=== PATIENT | female | born 1955 | race Caucasian/White ===

== ENCOUNTER 2020-08-25 13:15 | Inpatient (IN) | payer MEDICARE, SELFPAY ==
[2020-08-25 13:50] VITALS: BP 160/87; PULSE 98; RESP 16; TEMP 36.3; O2SAT 97; BMI 32.8
--- NOTE | 2020-08-25 14:42 | ED_ITS ---
HPI - Psych General Chief Complaint: Psychiatric Symptoms Stated Complaint: CRISIS Time Seen by Provider: 08/25/20 14:41 Source: patient Mode of arrival: ambulatory Limitations: no limitations History of Present Illness HPI Narrative: 65-year-old female with history of depression presenting with complaint of increasing feeling of depression and suicidal ideation with no specific plan also positive ETOH admits to drinking today. Reported to RN symptoms triggered by recent presidential election outcomes which she is unhappy with. Denies any medical complaints. No recent fall or injury. MD complaint: feels depressed Onset (ago): day(s) Duration: constant History of same: Yes Relieving factors: none Exacerbating factors: none If self harm: admits thoughts of self harm Details of plan: no plan expressed Related Data Home Medications Medication Instructions Recorded Confirmed albuterol sulfate 3 ml INHALATION Q4H PRN 08/25/20 08/25/20 albuterol sulfate [Ventolin HFA] 2 puff INHALATION Q6H PRN 08/25/20 08/25/20 bupropion HCl 1 tab PO QAM 08/25/20 08/25/20 escitalopram oxalate 1 tab PO BEDTIME 08/25/20 08/25/20 levothyroxine 1 tab PO DAILY 08/25/20 08/25/20 lisinopril 1 tab PO DAILY 08/25/20 08/25/20 sertraline 2 tab PO BEDTIME 08/25/20 08/25/20 simvastatin 1 tab PO BEDTIME 08/25/20 08/25/20 trazodone 2 tab PO BEDTIME PRN 08/25/20 08/25/20 Allergies Allergy/AdvReac Type Severity Reaction Status Date / Time No Known Allergies Allergy Unverified 07/03/20 19:45 [No Known Allergies*] Review of Systems Review of Systems: Constitutional: No Weight loss, No Fever, No Chills, No Night Sweats, No Fatigue, No Malaise ENT/Mouth: No Hearing loss, No Ear Pain, No Nasal Congestion, No Sinus Pain, No Hoarseness, No sore throat, No Rhinorrhea, No Swallowing Difficulty Eyes: No Eye Pain, No Swelling, No Redness, No Foreign Body, No Discharge, No Vision Changes Cardiovascular: No Chest Pain, No SOB, No Dyspnea on Exertion, No Orthopnea, No Edema, No Palpitations Respiratory: No Cough, No Sputum, No Wheezing, No Smoke Exposure, No Dyspnea Gastrointestinal: No Nausea, No Vomiting, No Diarrhea, No Constipation, No abdominal Pain, No Hematochezia, No Melena Genitourinary: no irregular bleeding, No Dysuria, No Urinary Frequency, No Hematuria, No Urinary Incontinence, No Urgency, No Flank Pain, No Urinary Flow Changes, No Hesitancy Musculoskeletal: No joint pain, No Myalgias, No Joint Swelling Skin: No Skin Lesions, No rash Neuro: No Weakness, No Numbness, No Paresthesias, No Loss of Consciousness, No Dizziness, No Headache Psych: as noted in HPI Heme/Lymph: No Bruising, No Bleeding,No Lymphadenopathy Endocrine: No Polyuria, No Polydipsia, No Temperature Intolerance Yes all other systems are reviewed and are negative [facility] Past Medical History Attestation statement: The following information was validated with the patient. Social History Social History Alcohol intake: current Alcohol intake frequency: 3 or more drinks per day Alcohol type: beer Smoking Status: Current every day smoker Smoked in Last 30 Days: Yes Use of substances other than those prescribed or required for medical reasons: No Advance Directives: No Advance Directives Information Provided: No Physical Exam Vital Signs: Vital Signs: Last Vital Signs Temp 98.5 F 08/25/20 20:49 Pulse 113 H 08/25/20 20:49 Resp 18 08/25/20 20:49 BP 163/95 H 08/25/20 20:49 Pulse Ox 96 08/25/20 20:49 Body Mass Index 32.8 Reviewed Const: Other: + odor of ETOH General: cooperative and healthy appearing; No acute distress or intoxicated appearing Nutritional Appearance: average body habitus Orientation/consciousness: patient oriented x3 HENMT: Head: Yes normal to inspection Ears: hearing grossly normal bilaterally Eyes: General: appearance normal, both eyes and all related structures Visual Foster: normal visual foster by confrontation Neck: Neck: No positive Brudzinski's sign and No tender Thyroid: Thyroid normal Chest: Chest palpation & inspection: normal inspection of the chest Resp: Effort & Inspection: normal respiratory effort Cardio: Jugular venous distension: no JVD GI: Inspection: Yes normal to inspection Percussion: Yes normal to percussion Auscultation: normal bowel sounds : General: Yes no CVA tenderness Back/Spine/Pelvis: Back: no CVA tenderness Skin: General skin exam: no rashes or lesions noted Neuro: General: patient oriented x3 Extrem: General: Yes normal to inspection Course Course Course Narrative: Evaluate Medicare team recommended for inpatient level care. Bed secured on M5. Requesting rapid COVID test this was ordered. Patient has no medical complaints. Has been resting comfortably. MDM - Psych MDM Narrative Medical decision making narrative: 1425 Offers no medical complaints. Will check ETOH/medical screening labs and obtain crisis evaluation. Differential Diagnosis Differential diagnosis: Likely acute psychosis, suicidal ideation, depression, drug-induced psychotic disorder, acute anxiety, substance abuse and alcohol intoxication Restraints Face to Face Assessment: Face to Face Assessment: Current Situation: After assessment of the patient, a review of the pertinent medical record and a discussion with nursing staff, I feel the patient requires a restrain intervention. Reaction To: [] Medical Condition: [] Behavioral State: [] Continued Need: [] Medical Records Attestation: I reviewed the patient's medical records. Lab Data Attestation: I reviewed the patient's lab results. Result diagrams: 08/25/20 16:09 08/25/20 16:09 Labs: Lab Results 08/25/20 08/25/20 08/25/20 Range/Units 16:09 16:09 16:09 WBC 6.0 (4.8-10.8) X10*3/uL RBC 3.84 L (4.20-5.50) X10*6/uL Hgb 12.3 (12.0-16.0) g/dl Hct 37.9 (37-47) % MCV 98.7 H (80-98) fL MCH 32.0 (27.0-33.0) pg MCHC 32.5 (31.0-35.0) g/dl RDW 15.6 (11.0-16.0) % Plt Count 350 (160-400) X10*3/uL MPV 9.1 L (9.4-12.3) fL Immature Gran % (Auto) 0.2 (0.0-0.4) % Neut % (Auto) 69.3 (45-73) % Lymph % (Auto) 22.0 (20-40) % [place] % (Auto) 7.3 (2-11) % Eos % (Auto) 0.5 (0-4) % Baso % (Auto) 0.7 (0-2) % Lymph # (Auto) 1.3 (1.2-4.9) X10*3/uL [place] # (Auto) 0.4 (0.1-1.2) X10*3/uL Eos # (Auto) 0.0 (0.0-0.4) X10*3/uL Baso # (Auto) 0.0 (0.0-0.2) X10*3/uL Abs Immat Gran (auto) 0.01 (0.00-0.03) X10*3/uL Absolute Neuts (auto) 4.2 (2.0-8.3) X10*3/uL Absolute Nucleated RBC 0.000 (0.0-0.012) X10*3/uL Nucleated RBC % (auto) 0.0 (0.0-0.2) /100WBC Sodium 147 H (135-145) mmol/L Potassium 3.7 (3.3-5.1) mmol/l Chloride 106 (96-108) mmol/L Carbon Dioxide 27 (22-29) mmol/L Anion Gap 18 (12-20) BUN 10 (9-16) mg/dL Creatinine 0.83 (0.5-1.4) mg/dL Estim Creat Clear Calc 70.0 Estimated GFR > 60 Random Glucose 98 (60-115) mg/dL Calcium 8.2 L (8.4-10.2) mg/dL Total Bilirubin 0.4 (0.0-1.0) mg/dL AST 28 (5-31) U/L ALT 18 (0-31) U/L Alkaline Phosphatase 109 (39-117) U/L Total Protein 6.8 (6.5-8.0) g/dL Albumin 4.0 (3.5-5.0) g/dL Urine Color Urine Appearance Urine pH (5.0-8.0) Ur Specific [place] (1.005-1.025) Urine Protein (NEG-TRACE) MG/DL Urine Glucose (UA) (NEG) MG/DL Urine Ketones (NEG) MG/DL Urine Blood (NEG) Urine Nitrite (NEG) Ur Leukocyte Esterase (NEG) Urine RBC (0) /HPF Urine WBC (0-4) /HPF Ur Squamous Epith Cells /LPF Urine Bacteria /LPF Urine Mucus /LPF Urine Opiates Screen (Not Detect) Ur Barbiturates Screen (Not Detect) Ur Phencyclidine Scrn (Not Detect) Ur Amphetamines Screen (Not Detect) U Benzodiazepines Scrn (Not Detect) Urine Cocaine Screen (Not Detect) U Marijuana (THC) Screen (Not Detect) Ethyl Alcohol 187 mg/dL 08/25/20 08/25/20 Range/Units 16:18 16:18 WBC (4.8-10.8) X10*3/uL RBC (4.20-5.50) X10*6/uL Hgb (12.0-16.0) g/dl Hct (37-47) % MCV (80-98) fL MCH (27.0-33.0) pg MCHC (31.0-35.0) g/dl RDW (11.0-16.0) % Plt Count (160-400) X10*3/uL MPV (9.4-12.3) fL Immature Gran % (Auto) (0.0-0.4) % Neut % (Auto) (45-73) % Lymph % (Auto) (20-40) % [place] % (Auto) (2-11) % Eos % (Auto) (0-4) % Baso % (Auto) (0-2) % Lymph # (Auto) (1.2-4.9) X10*3/uL [place] # (Auto) (0.1-1.2) X10*3/uL Eos # (Auto) (0.0-0.4) X10*3/uL Baso # (Auto) (0.0-0.2) X10*3/uL Abs Immat Gran (auto) (0.00-0.03) X10*3/uL Absolute Neuts (auto) (2.0-8.3) X10*3/uL Absolute Nucleated RBC (0.0-0.012) X10*3/uL Nucleated RBC % (auto) (0.0-0.2) /100WBC Sodium (135-145) mmol/L Potassium (3.3-5.1) mmol/l Chloride (96-108) mmol/L Carbon Dioxide (22-29) mmol/L Anion Gap (12-20) BUN (9-16) mg/dL Creatinine (0.5-1.4) mg/dL Estim Creat Clear Calc Estimated GFR Random Glucose (60-115) mg/dL Calcium (8.4-10.2) mg/dL Total Bilirubin (0.0-1.0) mg/dL AST (5-31) U/L ALT (0-31) U/L Alkaline Phosphatase (39-117) U/L Total Protein (6.5-8.0) g/dL Albumin (3.5-5.0) g/dL Urine Color YELLOW Urine Appearance CLEAR Urine pH 6.0 (5.0-8.0) Ur Specific [place] 1.025 (1.005-1.025) Urine Protein NEG (NEG-TRACE) MG/DL Urine Glucose (UA) NEG (NEG) MG/DL Urine Ketones NEG (NEG) MG/DL Urine Blood TRACE (NEG) Urine Nitrite NEG (NEG) Ur Leukocyte Esterase NEG (NEG) Urine RBC 0-2 (0) /HPF Urine WBC 0-2 (0-4) /HPF Ur Squamous Epith Cells 4+ /LPF Urine Bacteria 1+ /LPF Urine Mucus 1+ /LPF Urine Opiates Screen Not Detected (Not Detect) Ur Barbiturates Screen Not Detected (Not Detect) Ur Phencyclidine Scrn Not Detected (Not Detect) Ur Amphetamines Screen Not Detected (Not Detect) U Benzodiazepines Scrn Not Detected (Not Detect) Urine Cocaine Screen Not Detected (Not Detect) U Marijuana (THC) Screen Not Detected (Not Detect) Ethyl Alcohol mg/dL Discharge Plan Discharge Clinical Impression: Depression, Alcohol abuse Patient Disposition: Admitted As Inpatient Prescriptions: No Action lisinopril 20 mg tablet 1 tab PO DAILY RF: 0 albuterol sulfate 2.5 mg /3 mL (0.083 %) solution for nebulization 3 ml inhalation Q4H PRN (Reason: Wheezing) RF: 0 sertraline 100 mg tablet 2 tab PO BEDTIME RF: 0 trazodone 100 mg tablet 2 tab PO BEDTIME PRN (Reason: Insomnia) RF: 0 levothyroxine 50 mcg tablet 1 tab PO DAILY RF: 0 simvastatin 20 mg tablet 1 tab PO BEDTIME RF: 0 albuterol sulfate [Ventolin HFA] 90 mcg/actuation HFA aerosol inhaler 2 puff inhalation Q6H PRN (Reason: wheezing) RF: 0 escitalopram oxalate 20 mg tablet 1 tab PO BEDTIME RF: 0 bupropion HCl 300 mg tablet extended release 24 hr 1 tab PO QAM RF: 0
[2020-08-25 15:51] VITALS: BP 159/74; PULSE 81; RESP 18; TEMP 37.2; O2SAT 94
[2020-08-25 16:17] LABS: MANUAL DIFF FLAG NO
[2020-08-25 16:20] LABS: Basophils Percent Auto 0.7 % (0-2); Eosinophils Percent Auto 0.5 % (0-4); Hematocrit 37.9 % (37-47); Hemoglobin 12.3 g/dl (12.0-16.0); Imm Gran Abs Auto 0.01 X10*3/uL (0.00-0.03); Imm Gran Pct Auto 0.2 % (0.0-0.4); Lymphocytes Absolute Auto 1.3 X10*3/uL (1.2-4.9); Mean Corpuscular HGB Conc 32.5 g/dl (31.0-35.0); Mean Corpuscular Volume 98.7 fL (80-98); Mean Platelet Volume 9.1 fL (9.4-12.3); Monocytes Absolute Auto 0.4 X10*3/uL (0.1-1.2); Monocytes Percent Auto 7.3 % (2-11); Neutrophils Absolute Auto 4.2 X10*3/uL (2.0-8.3); Neutrophils Percent Auto 69.3 % (45-73); Platelet Count 350 X10*3/uL (160-400); Red Blood Count 3.84 X10*6/uL (4.20-5.50); Red Cell Distribution Width 15.6 % (11.0-16.0)
[2020-08-25 16:31] LABS: Glucose Urine UA NEG (NEG); Leukocyte Esterase Urine NEG (NEG); Nitrite Urine NEG (NEG); Specific Gravity - Urine 1.025 (1.005-1.025); Urine Blood TRACE (NEG); Urine Ketones NEG (NEG); Urine Protein NEG (NEG-TRACE)
[2020-08-25 16:33] LABS: Appearance Urine CLEAR; Color Urine YELLOW
[2020-08-25 16:39] LABS: Bacteria Urine 1+ /LPF; Mucus Urine 1+ /LPF; RBC Urine 0-2 /HPF (0); Squamous Epithelial Cell Urine 4+ /LPF; WBC Urine 0-2 /HPF (0-4)
[2020-08-25 16:39] LABS: Ethanol 187 mg/dL
[2020-08-25 16:42] LABS: Alanine Aminotransferase 18 U/L (0-31); Alkaline Phosphatase 109 U/L (39-117); Anion Gap 18 (12-20); Aspartate Amino Transferase 28 U/L (5-31); Bilirubin Total 0.4 mg/dL (0.0-1.0); Blood Urea Nitrogen 10 mg/dL (9-16); Calcium 8.2 mg/dL (8.4-10.2); Carbon Dioxide 27 mmol/L (22-29); Chloride 106 mmol/L (96-108); Estimated Glomerular Filt Rate > 60; Glucose Random 98 mg/dL (60-115); Potassium 3.7 mmol/l (3.3-5.1); Sodium 147 mmol/L (135-145); Total Protein 6.8 g/dL (6.5-8.0)
[2020-08-25 16:52] LABS: Amphetamine Screen Urine Not Detected (Not Detect); Barbiturates, Urine Not Detected (Not Detect); Benzodiazepines Screen Urine Not Detected (Not Detect); Cannabinoid Screen Urine Not Detected (Not Detect); Cocaine Screen Urine Not Detected (Not Detect); Opiate Screen Urine Not Detected (Not Detect); Phencyclidine Screen Urine Not Detected (Not Detect)
[2020-08-25 18:31] VITALS: BP 171/103; PULSE 109; RESP 17; TEMP 36.8; O2SAT 98
[2020-08-25] MEDS: LORazepam 1 MG TABLET 2 MG PO (19:17)
[2020-08-25 20:49] VITALS: BP 163/95; PULSE 113; RESP 18; TEMP 36.9; O2SAT 96
[2020-08-25] MEDS: Magnesium Hydrox/Alum Hydrox 30 ML ORAL.SUSP PO (20:53)
[2020-08-25 22:28] LABS: SARS COV2 PCR INHOUSE NEGATIVE (Negative)
[2020-08-25 23:30] VITALS: BP 164/78; PULSE 104; TEMP 36.6
[2020-08-26] MEDS: hydrOXYzine HCL 25 MG TABLET PO (00:30)
[2020-08-26] MEDS: LORazepam 0.5 MG TABLET 1 MG PO ×3 (00:30→10:09)
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
[2020-08-26 05:50] VITALS: BP 184/83; PULSE 80; RESP 16; TEMP 36; O2SAT 96
[2020-08-26 06:30] VITALS: BP 184/83; PULSE 80; RESP 16; TEMP 36; O2SAT 96
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
[2020-08-26 07:01] VITALS: BP 184/83; PULSE 80
[2020-08-26] MEDS: Levothyroxine Sodium 50 MCG TABLET PO (07:01)
[2020-08-26] MEDS: lisinopriL 20 MG TABLET PO (07:01)
[2020-08-26] MEDS: buPROPion HCl XL 300 MG TAB.ER.24H PO (09:56)
[2020-08-26 10:00] VITALS: BP 125/56; PULSE 93; TEMP 37.6
[2020-08-26] MEDS: Acetaminophen 325 MG TABLET 650 MG PO (10:03)
[2020-08-26] MEDS: Albuterol Sulfate 90 MCG 8 GM INHALER 2 PUFF INHALE (10:17)
[2020-08-26] MEDS: Fluticasone/Vilanterol 200/25 BLST.W.DEV 1 PUFF INHALE (10:20)
[2020-08-26 12:00] VITALS: BP 125/56; PULSE 93; TEMP 37.6
[2020-08-26] MEDS: Magnesium Hydrox/Alum Hydrox 30 ML ORAL.SUSP PO ×2 (14:02→21:30)
[2020-08-26] MEDS: Flu Vacc QS2020-21(6mos up)/PF 0.5 ML SYRINGE IM (14:07)
[2020-08-26] MEDS: Gabapentin 100 MG CAPSULE PO ×2 (14:44→20:30)
[2020-08-26] MEDS: Folic Acid 1 MG TABLET PO (14:44)
[2020-08-26] MEDS: Multivitamin TABLET 1 TAB PO (14:44)
[2020-08-26] MEDS: LORazepam 1 MG TABLET PO ×2 (14:46→20:30)
[2020-08-26] MEDS: Nicotine 21 MG PATCH.TD24 TRANSDERMA (15:12)
[2020-08-26 20:00] VITALS: BP 123/68; PULSE 99; TEMP 36.6
[2020-08-26] MEDS: Atorvastatin Calcium 10 MG TABLET PO (20:30)
[2020-08-27] MEDS: Albuterol Sulfate 90 MCG 8 GM INHALER 2 PUFF INHALE ×2 (03:48→14:29)
[2020-08-27 03:50] VITALS: BP 118/66; PULSE 89; RESP 18; TEMP 36.4
[2020-08-27] MEDS: hydrOXYzine HCL 25 MG TABLET PO ×2 (03:52→22:27)
[2020-08-27] MEDS: LORazepam 0.5 MG TABLET 1 MG PO ×2 (03:52→11:31)
--- NOTE | 2020-08-27 04:32 | P.PNPSI_ITS ---
Subjective Subjective Date of Service: 08/27/20 Reason For Visit: Depression Subjective Notes: Conditional Voluntary Interim History: Continued with WD Sx. Some DT confusion noted. Less tremulous but appears flushed. Depressed but safe. Increase Lorazepam and Gabapentin. VS elevated Medication Compliance: Yes Side effects from medications: No Attending Groups: No Review of Systems Reports Neuro-related abnormal movements and Reports tremor(s) Psychiatric: Reports no additional psychiatric complaints and Reports anxiety Mental Status Exam Mental Status Exam Patient Appearance: Disheveled, Perspiring and Unkempt Patient Orientation: Person, Place, Time and Situation Level of Consciousness: Restless Patient Behavior: Guarded, Passive, Anxious and Poor Eye Contact Mood Description: Apathetic, Depressed and Angry Affect Description: Depressed and Anxious Patient Cognition Impaired: No Ability to Follow Directions: Excellent Speech Pattern: Impoverished and Whisper Memory Description: Intact Diagnostics Vital Signs (24Hr): Vital Signs - 24 hr 08/26/20 05:50 08/26/20 06:30 08/26/20 07:01 Temperature 96.8 F 96.8 F Pulse Rate 80 80 80 Respiratory Rate 16 16 Blood Pressure 184/83 H 184/83 H 184/83 H Pulse Oximetry 96 96 08/26/20 10:00 08/26/20 12:00 08/26/20 20:00 Temperature 99.6 F 99.6 F 98 F Pulse Rate 93 93 99 Respiratory Rate Blood Pressure 125/56 L 125/56 L 123/68 Pulse Oximetry Body Mass Index 32.8 Labs Results: 08/25/20 16:09 08/25/20 16:09 Labs: Laboratory Results - last 48 hr 08/25/20 08/25/20 08/25/20 16:09 16:09 16:09 WBC 6.0 RBC 3.84 L Hgb 12.3 Hct 37.9 MCV 98.7 H MCH 32.0 MCHC 32.5 RDW 15.6 Plt Count 350 MPV 9.1 L Immature Gran % (Auto) 0.2 Neut % (Auto) 69.3 Lymph % (Auto) 22.0 Whitley % (Auto) 7.3 Eos % (Auto) 0.5 Baso % (Auto) 0.7 Lymph # (Auto) 1.3 Whitley # (Auto) 0.4 Eos # (Auto) 0.0 Baso # (Auto) 0.0 Abs Immat Gran (auto) 0.01 Absolute Neuts (auto) 4.2 Absolute Nucleated RBC 0.000 Nucleated RBC % (auto) 0.0 Sodium 147 H Potassium 3.7 Chloride 106 Carbon Dioxide 27 Anion Gap 18 BUN 10 Creatinine 0.83 Estim Creat Clear Calc 70.0 Estimated GFR > 60 Random Glucose 98 Calcium 8.2 L Total Bilirubin 0.4 AST 28 ALT 18 Alkaline Phosphatase 109 Total Protein 6.8 Albumin 4.0 Urine Color Urine Appearance Urine pH Ur Specific Aurelia Urine Protein Urine Glucose (UA) Urine Ketones Urine Blood Urine Nitrite Ur Leukocyte Esterase Urine RBC Urine WBC Ur Squamous Epith Cells Urine Bacteria Urine Mucus Urine Opiates Screen Ur Barbiturates Screen Ur Phencyclidine Scrn Ur Amphetamines Screen U Benzodiazepines Scrn Urine Cocaine Screen U Marijuana (THC) Screen Ethyl Alcohol 187 Coronavirus (PCR) COVID-19 (BALAJI) COVID-19 Clin Com 08/25/20 08/25/20 08/25/20 16:18 16:18 21:30 WBC RBC Hgb Hct MCV MCH MCHC RDW Plt Count MPV Immature Gran % (Auto) Neut % (Auto) Lymph % (Auto) Whitley % (Auto) Eos % (Auto) Baso % (Auto) Lymph # (Auto) Whitley # (Auto) Eos # (Auto) Baso # (Auto) Abs Immat Gran (auto) Absolute Neuts (auto) Absolute Nucleated RBC Nucleated RBC % (auto) Sodium Potassium Chloride Carbon Dioxide Anion Gap BUN Creatinine Estim Creat Clear Calc Estimated GFR Random Glucose Calcium Total Bilirubin AST ALT Alkaline Phosphatase Total Protein Albumin Urine Color YELLOW Urine Appearance CLEAR Urine pH 6.0 Ur Specific Aurelia 1.025 Urine Protein NEG Urine Glucose (UA) NEG Urine Ketones NEG Urine Blood TRACE Urine Nitrite NEG Ur Leukocyte Esterase NEG Urine RBC 0-2 Urine WBC 0-2 Ur Squamous Epith Cells 4+ Urine Bacteria 1+ Urine Mucus 1+ Urine Opiates Screen Not Detected Ur Barbiturates Screen Not Detected Ur Phencyclidine Scrn Not Detected Ur Amphetamines Screen Not Detected U Benzodiazepines Scrn Not Detected Urine Cocaine Screen Not Detected U Marijuana (THC) Screen Not Detected Ethyl Alcohol Coronavirus (PCR) COVID-19 (BALAJI) Cancelled COVID-19 Clin Com Cancelled 08/25/20 21:30 WBC RBC Hgb Hct MCV MCH MCHC RDW Plt Count MPV Immature Gran % (Auto) Neut % (Auto) Lymph % (Auto) Whitley % (Auto) Eos % (Auto) Baso % (Auto) Lymph # (Auto) Whitley # (Auto) Eos # (Auto) Baso # (Auto) Abs Immat Gran (auto) Absolute Neuts (auto) Absolute Nucleated RBC Nucleated RBC % (auto) Sodium Potassium Chloride Carbon Dioxide Anion Gap BUN Creatinine Estim Creat Clear Calc Estimated GFR Random Glucose Calcium Total Bilirubin AST ALT Alkaline Phosphatase Total Protein Albumin Urine Color Urine Appearance Urine pH Ur Specific Aurelia Urine Protein Urine Glucose (UA) Urine Ketones Urine Blood Urine Nitrite Ur Leukocyte Esterase Urine RBC Urine WBC Ur Squamous Epith Cells Urine Bacteria Urine Mucus Urine Opiates Screen Ur Barbiturates Screen Ur Phencyclidine Scrn Ur Amphetamines Screen U Benzodiazepines Scrn Urine Cocaine Screen U Marijuana (THC) Screen Ethyl Alcohol Coronavirus (PCR) NEGATIVE COVID-19 (BALAJI) COVID-19 Clin Com Medications Medications Current Medications Generic Name Dose Route Start Last Admin Trade Name Freq PRN Reason Stop Dose Admin Acetaminophen 650 mg 08/25/20 23:32 08/26/20 10:03 Acetaminophen 325 Mg Tablet PO 650 mg Q6H PRN Administration Headache/Pain Mild Scale (1-3) Al Hydroxide/Mg Hydroxide 30 ml 08/25/20 23:32 08/26/20 21:30 Magnesium Hydrox/Alum Hydrox 30 Ml Oral.Susp PO 30 ml Q6H PRN Administration Heartburn/Nausea Albuterol Sulfate 2 puff 08/26/20 00:55 08/26/20 10:17 Albuterol Sulfate 90 Mcg 8 Gm Inhaler INHALE 2 puff RQ6H PRN Administration Shortness of Breath/Wheezing Albuterol Sulfate 2.5 mg 08/26/20 06:38 Albuterol Sulfate (0.083%) 2.5 Mg/3 Ml Vial.Neb INHALE Q4H PRN Wheezing Albuterol Sulfate 2 puff 08/26/20 06:38 08/27/20 03:48 Albuterol Sulfate 90 Mcg 8 Gm Inhaler INHALE 2 puff Q6H PRN Administration wheezing Atorvastatin Calcium 10 mg 08/26/20 21:00 08/26/20 20:30 Atorvastatin Calcium 10 Mg Tablet PO 10 mg BEDTIME [facility]ANNA Administration Fluticasone/Vilanterol 1 puff 08/26/20 08:00 08/26/20 10:20 Fluticasone/Vilanterol 200/25 Blst.W.Dev INHALE 1 puff RDAILY [facility] Administration Folic Acid 1 mg 08/26/20 12:25 08/26/20 14:44 Folic Acid 1 Mg Tablet PO 1 mg DAILY [facility]ANNA Administration Gabapentin 100 mg 08/26/20 12:25 08/26/20 20:30 Gabapentin 100 Mg Capsule PO 100 mg TID ZHANNA Administration Hydroxyzine HCl 25 mg 08/25/20 23:32 08/27/20 03:52 Hydroxyzine Hcl 25 Mg Tablet PO 25 mg BEDTIME PRN Administration Anxiety Levothyroxine Sodium 50 mcg 08/26/20 07:00 08/26/20 07:01 Levothyroxine Sodium 50 Mcg Tablet PO 50 mcg DAILY@0600 [facility] Administration Lisinopril 20 mg 08/26/20 09:00 08/26/20 07:01 Lisinopril 20 Mg Tablet PO 20 mg DAILY [facility] Administration Protocol Lorazepam 1 mg 08/25/20 23:32 08/27/20 03:52 Lorazepam 0.5 Mg Tablet PO 1 mg Q3H PRN Administration Alcohol Withdrawal Lorazepam 1 mg 08/26/20 15:00 08/26/20 20:30 Lorazepam 1 Mg Tablet PO 1 mg TID [facility] Administration Magnesium Hydroxide 30 ml 08/25/20 23:32 Milk Of Magnesia 30 Ml Oral.Susp PO DAILY PRN Constipation Multivitamins/Vitamin C 1 tab 08/26/20 12:25 08/26/20 14:44 Multivitamin Tablet PO 1 tab DAILY [facility] Administration Nicotine 21 mg 08/26/20 14:00 08/26/20 15:12 Nicotine 21 Mg Patch.Td24 TRANSDERMA 21 mg DAILY [facility] Administration Nicotine Polacrilex 2 mg 08/26/20 13:57 Nicotine Polacrilex 2 Mg Gum BUCCAL Q2H PRN Nicotine Cravings Sertraline HCl 200 mg 08/27/20 09:00 Sertraline Hcl 100 Mg Tablet PO DAILY [facility] Thiamine HCl 100 mg 08/27/20 09:00 Thiamine Hcl 100 Mg Tablet PO DAILY [facility] Trazodone HCl 200 mg 08/26/20 06:38 Trazodone Hcl 100 Mg Tablet PO BEDTIME PRN Insomnia Allergies Allergies Allergy/AdvReac Type Severity Reaction Status Date / Time No Known Allergies Allergy Unverified 07/03/20 19:45 [No Known Allergies*] Assessment & Plan Assessment & Plan (1) Alcohol use disorder, severe, dependence: Status: Acute Code(s): F10.20 - Alcohol dependence, uncomplicated (2) Major depress dis, severe: Status: Acute Code(s): F32.2 - Major depressive disorder, single episode, severe without psychotic features Assessment and Plan: q15 checks q4 VS ETOH WD protocol: Vits x 3/Gabapentin/Lexapro/Lorazepam Collateral info [facility] Groups Greater than 50% of the session was spent on counseling and/or coordination of care
[2020-08-27] MEDS: Levothyroxine Sodium 50 MCG TABLET PO (07:17)
[2020-08-27] MEDS: Nicotine 21 MG PATCH.TD24 TRANSDERMA (08:27)
[2020-08-27 08:28] VITALS: BP 118/66; PULSE 89
[2020-08-27] MEDS: lisinopriL 20 MG TABLET PO (08:28)
[2020-08-27] MEDS: Folic Acid 1 MG TABLET PO (08:29)
[2020-08-27] MEDS: Sertraline HCL 100 MG TABLET 200 MG PO (08:29)
[2020-08-27] MEDS: Multivitamin TABLET 1 TAB PO (08:29)
[2020-08-27] MEDS: Gabapentin 100 MG CAPSULE PO (08:30)
[2020-08-27] MEDS: LORazepam 1 MG TABLET PO (08:30)
[2020-08-27] MEDS: Acetaminophen 325 MG TABLET 650 MG PO (08:30)
[2020-08-27] MEDS: Thiamine HCL 100 MG TABLET PO (08:30)
[2020-08-27] MEDS: Fluticasone/Vilanterol 200/25 BLST.W.DEV 1 PUFF INHALE (08:37)
[2020-08-27 09:34] VITALS: BP 112/57; PULSE 77; O2SAT 100
[2020-08-27 12:25] VITALS: BP 126/66; PULSE 68
[2020-08-27] MEDS: LORazepam 1 MG TABLET 1.5 MG PO ×2 (14:31→19:49)
[2020-08-27] MEDS: Gabapentin 100 MG CAPSULE 200 MG PO ×2 (14:31→19:51)
[2020-08-27 16:00] VITALS: BP 162/71; PULSE 71; TEMP 36.3
[2020-08-27 19:45] VITALS: BP 128/64; PULSE 76
[2020-08-27] MEDS: Atorvastatin Calcium 10 MG TABLET PO (19:52)
[2020-08-27] MEDS: traZODone HCL 100 MG TABLET 200 MG PO (22:27)
[2020-08-28] VITALS (8 sets, daily range): BP systolic 102–150; BP diastolic 54–99; PULSE 63–72; RESP 16; TEMP 36.1–36.7; O2SAT 93
[2020-08-28] MEDS: Levothyroxine Sodium 50 MCG TABLET PO (06:26)
--- NOTE | 2020-08-28 07:29 | HO.PSYCHPN ---
Subjective Subjective Reason For Visit: Depression Interim History: Continued with WD Sx. Some DT confusion noted. Less tremulous but appears flushed. Depressed but safe. Decrease Lorazepam and ct Gabapentin. VS variable Review of Systems Review of Systems Yes all other systems are reviewed and are negative Reports Neuro-related abnormal movements and Reports tremor(s) Mental Status Exam Mental Status Exam Patient Appearance: Disheveled, Perspiring and Unkempt Patient Orientation: Person, Place, Time and Situation Level of Consciousness: Restless Patient Behavior: Guarded, Passive, Anxious and Poor Eye Contact Mood Description: Apathetic, Depressed and Angry Affect Description: Depressed and Anxious Patient Cognition Impaired: No Ability to Follow Directions: Excellent Speech Pattern: Impoverished and Whisper Memory Description: Intact Diagnostics Vital Signs (24Hr): Vital Signs - 24 hr 08/27/20 08:28 08/27/20 09:34 08/27/20 12:25 Temperature Pulse Rate 89 77 68 Respiratory Rate Blood Pressure 118/66 112/57 L 126/66 Pulse Oximetry 100 08/27/20 16:00 08/27/20 19:45 08/28/20 06:25 Temperature 97.4 F 97 F Pulse Rate 71 76 63 Respiratory Rate 16 Blood Pressure 162/71 H 128/64 102/99 H Pulse Oximetry 93 Body Mass Index 32.8 Labs Results: 08/25/20 16:09 08/25/20 16:09 Medications Medications Current Medications Generic Name Dose Route Start Last Admin Trade Name Freq PRN Reason Stop Dose Admin Acetaminophen 650 mg 08/25/20 23:32 08/27/20 08:30 Acetaminophen 325 Mg Tablet PO 650 mg Q6H PRN Administration Headache/Pain Mild Scale (1-3) Al Hydroxide/Mg Hydroxide 30 ml 08/25/20 23:32 08/26/20 21:30 Magnesium Hydrox/Alum Hydrox 30 Ml Oral.Susp PO 30 ml Q6H PRN Administration Heartburn/Nausea Albuterol Sulfate 2 puff 08/26/20 00:55 08/26/20 10:17 Albuterol Sulfate 90 Mcg 8 Gm Inhaler INHALE 2 puff RQ6H PRN Administration Shortness of Breath/Wheezing Albuterol Sulfate 2.5 mg 08/26/20 06:38 Albuterol Sulfate (0.083%) 2.5 Mg/3 Ml Vial.Neb INHALE Q4H PRN Wheezing Albuterol Sulfate 2 puff 08/26/20 06:38 08/27/20 14:29 Albuterol Sulfate 90 Mcg 8 Gm Inhaler INHALE 2 puff Q6H PRN Administration wheezing Atorvastatin Calcium 10 mg 08/26/20 21:00 08/27/20 19:52 Atorvastatin Calcium 10 Mg Tablet PO 10 mg BEDTIME [facility] Administration Fluticasone/Vilanterol 1 puff 08/26/20 08:00 08/27/20 08:37 Fluticasone/Vilanterol 200/25 Blst.W.Dev INHALE 1 puff RDAILY [facility] Administration Folic Acid 1 mg 08/26/20 12:25 08/27/20 08:29 Folic Acid 1 Mg Tablet PO 1 mg DAILY [facility] Administration Gabapentin 200 mg 08/27/20 15:00 08/27/20 19:51 Gabapentin 100 Mg Capsule PO 200 mg TID [facility]AN[facility] Administration Hydroxyzine HCl 25 mg 08/25/20 23:32 08/27/20 22:27 Hydroxyzine Hcl 25 Mg Tablet PO 25 mg BEDTIME PRN Administration Anxiety Levothyroxine Sodium 50 mcg 08/26/20 07:00 08/28/20 06:26 Levothyroxine Sodium 50 Mcg Tablet PO 50 mcg DAILY@0600 [facility] Administration Lisinopril 20 mg 08/26/20 09:00 08/27/20 08:28 Lisinopril 20 Mg Tablet PO 20 mg DAILY [facility] Administration Protocol Lorazepam 1.5 mg 08/27/20 15:00 08/27/20 19:49 Lorazepam 1 Mg Tablet PO 1.5 mg TID [facility] Administration Lorazepam 1 mg 08/27/20 11:27 Lorazepam 1 Mg Tablet PO Q4H PRN Alcohol Withdrawal Magnesium Hydroxide 30 ml 08/25/20 23:32 Milk Of Magnesia 30 Ml Oral.Susp PO DAILY PRN Constipation Multivitamins/Vitamin C 1 tab 08/26/20 12:25 08/27/20 08:29 Multivitamin Tablet PO 1 tab DAILY [facility] Administration Nicotine 21 mg 08/26/20 14:00 08/27/20 08:27 Nicotine 21 Mg Patch.Td24 TRANSDERMA 21 mg DAILY [facility] Administration Nicotine Polacrilex 2 mg 08/26/20 13:57 Nicotine Polacrilex 2 Mg Gum BUCCAL Q2H PRN Nicotine Cravings Sertraline HCl 200 mg 08/27/20 09:00 08/27/20 08:29 Sertraline Hcl 100 Mg Tablet PO 200 mg DAILY [facility] Administration Thiamine HCl 100 mg 08/27/20 09:00 08/27/20 08:30 Thiamine Hcl 100 Mg Tablet PO 100 mg DAILY [facility] Administration Trazodone HCl 200 mg 08/26/20 06:38 08/27/20 22:27 Trazodone Hcl 100 Mg Tablet PO 200 mg BEDTIME PRN Administration Insomnia Allergies Allergies Allergy/AdvReac Type Severity Reaction Status Date / Time No Known Allergies Allergy Unverified 07/03/20 19:45 [No Known Allergies*] Assessment & Plan Assessment & Plan (1) Alcohol use disorder, severe, dependence: Status: Acute Code(s): F10.20 - Alcohol dependence, uncomplicated (2) Major depress dis, severe: Status: Acute Code(s): F32.2 - Major depressive disorder, single episode, severe without psychotic features Assessment and Plan: q15 checks q4 VS ETOH WD protocol: Vits x 3/Gabapentin/Lexapro/Lorazepam Collateral info [facility] Groups Greater than 50% of the session was spent on counseling and/or coordination of care
[2020-08-28] MEDS: Nicotine 21 MG PATCH.TD24 TRANSDERMA (08:44)
[2020-08-28] MEDS: Sertraline HCL 100 MG TABLET 200 MG PO (08:45)
[2020-08-28] MEDS: lisinopriL 20 MG TABLET PO (08:45)
[2020-08-28] MEDS: Gabapentin 100 MG CAPSULE 200 MG PO ×3 (08:45→20:23)
[2020-08-28] MEDS: Multivitamin TABLET 1 TAB PO (08:46)
[2020-08-28] MEDS: Thiamine HCL 100 MG TABLET PO (08:46)
[2020-08-28] MEDS: Folic Acid 1 MG TABLET PO (08:46)
[2020-08-28] MEDS: LORazepam 1 MG TABLET PO ×2 (08:47→20:24)
[2020-08-28] MEDS: Acetaminophen 325 MG TABLET 650 MG PO ×2 (08:51→16:18)
[2020-08-28] MEDS: Fluticasone/Vilanterol 200/25 BLST.W.DEV 1 PUFF INHALE (08:53)
[2020-08-28] MEDS: Albuterol Sulfate 90 MCG 8 GM INHALER 2 PUFF INHALE ×2 (09:49→20:30)
[2020-08-28] MEDS: Magnesium Hydrox/Alum Hydrox 30 ML ORAL.SUSP PO (10:24)
[2020-08-28] MEDS: Atorvastatin Calcium 10 MG TABLET PO (20:23)
[2020-08-28] MEDS: traZODone HCL 100 MG TABLET 200 MG PO (20:30)
[2020-08-29] VITALS (9 sets, daily range): BP systolic 135–165; BP diastolic 60–77; PULSE 70–82; RESP 16; TEMP 35.9–36.4; O2SAT 94
--- NOTE | 2020-08-29 06:21 | HO.PSYCHPN ---
Subjective Subjective Reason For Visit: Depression Interim History: Continued with subtle WD Sx. Some DT confusion is less. Gait is better. Some Hx neuropathic Sx . c/o CONNOR. Will add Prilosec with Ibuprofen. Less tremulous. Depressed but safe. Decrease Lorazepam and ct Gabapentin. Will dW re Revia Review of Systems Review of Systems Yes all other systems are reviewed and are negative Reports Neuro-related abnormal movements and Reports tremor(s) Mental Status Exam Mental Status Exam Patient Appearance: Disheveled, Perspiring and Unkempt Patient Orientation: Person, Place, Time and Situation Level of Consciousness: Restless Patient Behavior: Guarded, Passive, Anxious and Poor Eye Contact Mood Description: Apathetic, Depressed and Angry Affect Description: Depressed and Anxious Patient Cognition Impaired: No Ability to Follow Directions: Excellent Speech Pattern: Impoverished and Whisper Memory Description: Intact Diagnostics Vital Signs (24Hr): Vital Signs - 24 hr 08/28/20 06:25 08/28/20 08:45 08/28/20 12:00 Temperature 97 F Pulse Rate 63 63 71 Respiratory Rate 16 Blood Pressure 102/99 H 111/72 150/70 H Pulse Oximetry 93 08/28/20 15:41 08/28/20 16:00 08/28/20 16:36 Temperature 98.0 F Pulse Rate 72 72 68 Respiratory Rate Blood Pressure 150/70 H 127/54 L 150/66 H Pulse Oximetry 08/28/20 20:00 08/28/20 21:49 Temperature 97.0 F 97.0 F Pulse Rate 65 Respiratory Rate Blood Pressure 128/58 L Pulse Oximetry Body Mass Index 32.8 Labs Results: 08/25/20 16:09 08/25/20 16:09 Medications Medications Current Medications Generic Name Dose Route Start Last Admin Trade Name Freq PRN Reason Stop Dose Admin Acetaminophen 650 mg 08/25/20 23:32 08/28/20 16:18 Acetaminophen 325 Mg Tablet PO 650 mg Q6H PRN Administration Headache/Pain Mild Scale (1-3) Al Hydroxide/Mg Hydroxide 30 ml 08/25/20 23:32 08/28/20 10:24 Magnesium Hydrox/Alum Hydrox 30 Ml Oral.Susp PO 30 ml Q6H PRN Administration Heartburn/Nausea Albuterol Sulfate 2 puff 08/26/20 00:55 08/26/20 10:17 Albuterol Sulfate 90 Mcg 8 Gm Inhaler INHALE 2 puff RQ6H PRN Administration Shortness of Breath/Wheezing Albuterol Sulfate 2.5 mg 08/26/20 06:38 Albuterol Sulfate (0.083%) 2.5 Mg/3 Ml Vial.Neb INHALE Q4H PRN Wheezing Albuterol Sulfate 2 puff 08/26/20 06:38 08/28/20 20:30 Albuterol Sulfate 90 Mcg 8 Gm Inhaler INHALE 2 puff Q6H PRN Administration wheezing Atorvastatin Calcium 10 mg 08/26/20 21:00 08/28/20 20:23 Atorvastatin Calcium 10 Mg Tablet PO 10 mg BEDTIME [facility] Administration Fluticasone/Vilanterol 1 puff 08/26/20 08:00 08/28/20 08:53 Fluticasone/Vilanterol 200/25 Blst.W.Dev INHALE 1 puff RDAILY [facility] Administration Folic Acid 1 mg 08/26/20 12:25 08/28/20 08:46 Folic Acid 1 Mg Tablet PO 1 mg DAILY [facility] Administration Gabapentin 200 mg 08/27/20 15:00 08/28/20 20:23 Gabapentin 100 Mg Capsule PO 200 mg TID [facility]NA Administration Hydroxyzine HCl 25 mg 08/25/20 23:32 08/27/20 22:27 Hydroxyzine Hcl 25 Mg Tablet PO 25 mg BEDTIME PRN Administration Anxiety Levothyroxine Sodium 50 mcg 08/26/20 07:00 08/28/20 06:26 Levothyroxine Sodium 50 Mcg Tablet PO 50 mcg DAILY@0600 [facility] Administration Lisinopril 10 mg 08/29/20 09:00 Lisinopril 10 Mg Tablet PO DAILY [facility] Protocol Lorazepam 1 mg 08/27/20 11:27 Lorazepam 1 Mg Tablet PO Q4H PRN Alcohol Withdrawal Lorazepam 1 mg 08/28/20 09:00 08/28/20 20:24 Lorazepam 1 Mg Tablet PO 1 mg BID [facility]ANNA Administration Magnesium Hydroxide 30 ml 08/25/20 23:32 Milk Of Magnesia 30 Ml Oral.Susp PO DAILY PRN Constipation Multivitamins/Vitamin C 1 tab 08/26/20 12:25 08/28/20 08:46 Multivitamin Tablet PO 1 tab DAILY [facility] Administration Nicotine 21 mg 08/26/20 14:00 08/28/20 08:44 Nicotine 21 Mg Patch.Td24 TRANSDERMA 21 mg DAILY [facility] Administration Nicotine Polacrilex 2 mg 08/26/20 13:57 Nicotine Polacrilex 2 Mg Gum BUCCAL Q2H PRN Nicotine Cravings Sertraline HCl 200 mg 08/27/20 09:00 08/28/20 08:45 Sertraline Hcl 100 Mg Tablet PO 200 mg DAILY [facility] Administration Thiamine HCl 100 mg 08/27/20 09:00 08/28/20 08:46 Thiamine Hcl 100 Mg Tablet PO 100 mg DAILY [facility] Administration Trazodone HCl 200 mg 08/26/20 06:38 08/28/20 20:30 Trazodone Hcl 100 Mg Tablet PO 200 mg BEDTIME PRN Administration Insomnia Allergies Allergies Allergy/AdvReac Type Severity Reaction Status Date / Time No Known Allergies Allergy Unverified 07/03/20 19:45 [No Known Allergies*] Assessment & Plan Assessment & Plan (1) Alcohol use disorder, severe, dependence: Status: Acute Code(s): F10.20 - Alcohol dependence, uncomplicated (2) Major depress dis, severe: Status: Acute Code(s): F32.2 - Major depressive disorder, single episode, severe without psychotic features Assessment and Plan: q15 checks q4 VS ETOH WD protocol: Vits x 3/Gabapentin/Lexapro/Lorazepam (taper soon) Collateral info [facility] Groups Greater than 50% of the session was spent on counseling and/or coordination of care
[2020-08-29] MEDS: Levothyroxine Sodium 50 MCG TABLET PO (06:39)
[2020-08-29] MEDS: Gabapentin 100 MG CAPSULE 200 MG PO ×3 (09:19→20:41)
[2020-08-29] MEDS: Multivitamin TABLET 1 TAB PO (09:19)
[2020-08-29] MEDS: Sertraline HCL 100 MG TABLET 200 MG PO (09:19)
[2020-08-29] MEDS: LORazepam 1 MG TABLET PO ×2 (09:20→20:40)
[2020-08-29] MEDS: Folic Acid 1 MG TABLET PO (09:20)
[2020-08-29] MEDS: lisinopriL 10 MG TABLET PO (09:20)
[2020-08-29] MEDS: Albuterol Sulfate 90 MCG 8 GM INHALER 2 PUFF INHALE (09:21)
[2020-08-29] MEDS: Nicotine 21 MG PATCH.TD24 TRANSDERMA (09:21)
[2020-08-29] MEDS: Fluticasone/Vilanterol 200/25 BLST.W.DEV 1 PUFF INHALE (09:22)
[2020-08-29] MEDS: Thiamine HCL 100 MG TABLET PO (10:10)
[2020-08-29] MEDS: Acetaminophen 325 MG TABLET 650 MG PO ×2 (10:12→19:19)
[2020-08-29] MEDS: Omeprazole 20 MG CAPSULE.DR PO (16:03)
[2020-08-29] MEDS: Magnesium Hydrox/Alum Hydrox 30 ML ORAL.SUSP PO (17:43)
[2020-08-29] MEDS: Atorvastatin Calcium 10 MG TABLET PO (20:40)
[2020-08-29] MEDS: traZODone HCL 100 MG TABLET 200 MG PO (20:46)
[2020-08-30 06:15] VITALS: BP 127/60; PULSE 63; RESP 16; TEMP 36.7
[2020-08-30] MEDS: Multivitamin TABLET 1 TAB PO (09:05)
[2020-08-30] MEDS: lisinopriL 10 MG TABLET PO (09:05)
[2020-08-30] MEDS: Omeprazole 20 MG CAPSULE.DR PO ×2 (09:05→17:05)
[2020-08-30] MEDS: Levothyroxine Sodium 50 MCG TABLET PO (09:05)
[2020-08-30] MEDS: Thiamine HCL 100 MG TABLET PO (09:05)
[2020-08-30] MEDS: Gabapentin 100 MG CAPSULE 200 MG PO ×2 (09:05→20:13)
[2020-08-30] MEDS: Sertraline HCL 100 MG TABLET 200 MG PO (09:05)
[2020-08-30] MEDS: Folic Acid 1 MG TABLET PO (09:06)
[2020-08-30] MEDS: LORazepam 1 MG TABLET PO (09:06)
[2020-08-30] MEDS: Fluticasone/Vilanterol 200/25 BLST.W.DEV 1 PUFF INHALE (09:07)
[2020-08-30] MEDS: Ibuprofen 400 MG TABLET PO ×2 (10:03→19:32)
[2020-08-30] MEDS: Nicotine 21 MG PATCH.TD24 TRANSDERMA (10:03)
--- NOTE | 2020-08-30 11:58 | HO.PSYCHPN ---
Subjective Subjective Reason For Visit: Depression Interim History: pt reporting some dizziness and trouble with peripheral vision; Continues with intermittent orhtostaic hypotension; mild confusion Gait is better. Less tremulous. Depressed but safe. Review of Systems Eyes: Reports loss of peripheral vision (decreased) Reports dizziness Reports Neuro-related abnormal movements, Reports dizziness and Reports tremor(s) Mental Status Exam Mental Status Exam Patient Appearance: Disheveled, Perspiring and Unkempt Patient Orientation: Person, Place, Time and Situation Level of Consciousness: Restless Patient Behavior: Guarded, Passive, Anxious and Poor Eye Contact Mood Description: Apathetic, Depressed and Angry Affect Description: Depressed and Anxious Patient Cognition Impaired: No Ability to Follow Directions: Excellent Speech Pattern: Impoverished and Whisper Memory Description: Intact Diagnostics Vital Signs (24Hr): Vital Signs - 24 hr 08/29/20 12:00 08/29/20 14:00 08/29/20 16:00 Temperature 97.6 F Pulse Rate 82 71 Respiratory Rate 16 Blood Pressure 135/60 165/77 H 08/29/20 20:00 08/29/20 22:00 08/30/20 06:15 Temperature 97.3 F 98.1 F Pulse Rate 82 63 Respiratory Rate 16 Blood Pressure 135/60 127/60 Body Mass Index 32.8 Labs Results: 08/25/20 16:09 08/25/20 16:09 Medications Medications Current Medications Generic Name Dose Route Start Last Admin Trade Name Freq PRN Reason Stop Dose Admin Al Hydroxide/Mg Hydroxide 30 ml 08/25/20 23:32 08/29/20 17:43 Magnesium Hydrox/Alum Hydrox 30 Ml Oral.Susp PO 30 ml Q6H PRN Administration Heartburn/Nausea Albuterol Sulfate 2 puff 08/26/20 00:55 08/26/20 10:17 Albuterol Sulfate 90 Mcg 8 Gm Inhaler INHALE 2 puff RQ6H PRN Administration Shortness of Breath/Wheezing Albuterol Sulfate 2.5 mg 08/26/20 06:38 Albuterol Sulfate (0.083%) 2.5 Mg/3 Ml Vial.Neb INHALE Q4H PRN Wheezing Albuterol Sulfate 2 puff 08/26/20 06:38 08/29/20 09:21 Albuterol Sulfate 90 Mcg 8 Gm Inhaler INHALE 2 puff Q6H PRN Administration wheezing Atorvastatin Calcium 10 mg 08/26/20 21:00 08/29/20 20:40 Atorvastatin Calcium 10 Mg Tablet PO 10 mg BEDTIME [facility] Administration Fluticasone/Vilanterol 1 puff 08/26/20 08:00 08/30/20 09:07 Fluticasone/Vilanterol 200/25 Blst.W.Dev INHALE 1 puff RDAILY [facility] Administration Folic Acid 1 mg 08/26/20 12:25 08/30/20 09:06 Folic Acid 1 Mg Tablet PO 1 mg DAILY [facility] Administration Gabapentin 200 mg 08/27/20 15:00 08/30/20 09:05 Gabapentin 100 Mg Capsule PO 200 mg TID [facility]ANNA Administration Hydroxyzine HCl 25 mg 08/25/20 23:32 08/27/20 22:27 Hydroxyzine Hcl 25 Mg Tablet PO 25 mg BEDTIME PRN Administration Anxiety Ibuprofen 400 mg 08/29/20 11:00 08/30/20 10:03 Ibuprofen 400 Mg Tablet PO 400 mg TIDWM PRN Administration Pain, Moderate (Pain Scale 4-6 Levothyroxine Sodium 50 mcg 08/26/20 07:00 08/30/20 09:05 Levothyroxine Sodium 50 Mcg Tablet PO 50 mcg DAILY@0600 [facility] Administration Lisinopril 10 mg 08/29/20 09:00 08/30/20 09:05 Lisinopril 10 Mg Tablet PO 10 mg DAILY [facility] Administration Protocol Lorazepam 1 mg 08/27/20 11:27 Lorazepam 1 Mg Tablet PO Q4H PRN Alcohol Withdrawal Lorazepam 1 mg 08/28/20 09:00 08/30/20 09:06 Lorazepam 1 Mg Tablet PO 1 mg BID [facility]ANNA Administration Magnesium Hydroxide 30 ml 08/25/20 23:32 Milk Of Magnesia 30 Ml Oral.Susp PO DAILY PRN Constipation Multivitamins/Vitamin C 1 tab 08/26/20 12:25 08/30/20 09:05 Multivitamin Tablet PO 1 tab DAILY [facility] Administration Nicotine 21 mg 08/26/20 14:00 08/30/20 10:03 Nicotine 21 Mg Patch.Td24 TRANSDERMA 21 mg DAILY [facility] Administration Nicotine Polacrilex 2 mg 08/26/20 13:57 Nicotine Polacrilex 2 Mg Gum BUCCAL Q2H PRN Nicotine Cravings Omeprazole 20 mg 08/29/20 16:30 08/30/20 09:05 Omeprazole 20 Mg Capsule. PO 20 mg BID@9613,8897 [facility]ANNA Administration Sertraline HCl 200 mg 08/27/20 09:00 08/30/20 09:05 Sertraline Hcl 100 Mg Tablet PO 200 mg DAILY [facility] Administration Thiamine HCl 100 mg 08/27/20 09:00 08/30/20 09:05 Thiamine Hcl 100 Mg Tablet PO 100 mg DAILY [facility] Administration Trazodone HCl 200 mg 08/26/20 06:38 08/29/20 20:46 Trazodone Hcl 100 Mg Tablet PO 200 mg BEDTIME PRN Administration Insomnia Allergies Allergies Allergy/AdvReac Type Severity Reaction Status Date / Time No Known Allergies Allergy Unverified 07/03/20 19:45 [No Known Allergies*] Assessment & Plan Assessment & Plan (1) Alcohol use disorder, severe, dependence: Status: Acute Code(s): F10.20 - Alcohol dependence, uncomplicated Assessment and Plan: q15 checks q4 VS check orthos ETOH WD protocol: Vits x 3/Gabapentin/Lexapro/ reduce Lorazepam scheduked and continue PRN if needed for anxiety, BP elevation or WD symptoms Collateral info [facility] Groups (2) Major depress dis, severe: Status: Acute Code(s): F32.2 - Major depressive disorder, single episode, severe without psychotic features Assessment and Plan: lexapro groups Greater than 50% of the session was spent on counseling and/or coordination of care
[2020-08-30 16:00] VITALS: BP 141/67; PULSE 62
[2020-08-30 16:08] VITALS: BP 111/59; PULSE 69
[2020-08-30] MEDS: LORazepam 0.5 MG TABLET PO (20:13)
[2020-08-30] MEDS: Atorvastatin Calcium 10 MG TABLET PO (20:13)
[2020-08-30] MEDS: traZODone HCL 100 MG TABLET 200 MG PO (20:16)
[2020-08-30] MEDS: Albuterol Sulfate 90 MCG 8 GM INHALER 2 PUFF INHALE (20:17)
[2020-08-30 21:04] VITALS: BP 141/67; PULSE 62
[2020-08-31] MEDS: Levothyroxine Sodium 50 MCG TABLET PO (06:14)
[2020-08-31] MEDS: Omeprazole 20 MG CAPSULE.DR PO ×2 (06:15→17:26)
[2020-08-31 06:25] VITALS: BP 108/53; PULSE 64; RESP 16; TEMP 36.2; O2SAT 94
[2020-08-31] MEDS: Nicotine 21 MG PATCH.TD24 TRANSDERMA (08:48)
[2020-08-31] MEDS: LORazepam 0.5 MG TABLET PO ×2 (08:48→20:17)
[2020-08-31] MEDS: Sertraline HCL 100 MG TABLET 200 MG PO (08:48)
[2020-08-31] MEDS: lisinopriL 10 MG TABLET PO (08:48)
[2020-08-31] MEDS: Thiamine HCL 100 MG TABLET PO (08:48)
[2020-08-31] MEDS: Folic Acid 1 MG TABLET PO (08:48)
[2020-08-31] MEDS: Gabapentin 100 MG CAPSULE 200 MG PO ×3 (08:48→20:17)
[2020-08-31] MEDS: Multivitamin TABLET 1 TAB PO (08:48)
[2020-08-31] MEDS: Fluticasone/Vilanterol 200/25 BLST.W.DEV 1 PUFF INHALE (09:02)
[2020-08-31] MEDS: Albuterol Sulfate 90 MCG 8 GM INHALER 2 PUFF INHALE ×2 (09:02→20:17)
--- NOTE | 2020-08-31 12:16 | P.PNPSI_ITS ---
Subjective Subjective Reason For Visit: Depression Interim History: pt reporting less dizziness and no increase in problems with peripheral vision; BP higher today but less symptomatic, mild confusion Gait is better. Less tremulous. Depressed but safe. Review of Systems Reports dizziness (Denies today) Reports Neuro-related abnormal movements, Reports dizziness (Denies today) and Reports tremor(s) Mental Status Exam Mental Status Exam Patient Appearance: Disheveled and Unkempt Patient Orientation: Person, Place, Time and Situation Level of Consciousness: Restless Patient Behavior: Guarded, Passive, Anxious and Poor Eye Contact Mood Description: Apathetic, Depressed and Angry Affect Description: Depressed and Anxious Patient Cognition Impaired: No Ability to Follow Directions: Excellent Speech Pattern: Impoverished and Whisper Memory Description: Intact Thought Content: positive for Intact Depressive Symptoms: Loss of Int. in Activity, Loss of Energy and Difficulty Concentrating Judgement: Fair Diagnostics Vital Signs (24Hr): Vital Signs - 24 hr 08/30/20 16:00 08/30/20 16:08 08/30/20 21:04 Temperature Pulse Rate 62 69 62 Respiratory Rate Blood Pressure 141/67 H 111/59 L 141/67 H Pulse Oximetry 08/31/20 06:25 Temperature 97.2 F Pulse Rate 64 Respiratory Rate 16 Blood Pressure 108/53 L Pulse Oximetry 94 Body Mass Index 32.8 Labs Results: 08/25/20 16:09 08/25/20 16:09 Medications Medications Current Medications Generic Name Dose Route Start Last Admin Trade Name Freq PRN Reason Stop Dose Admin Al Hydroxide/Mg Hydroxide 30 ml 08/25/20 23:32 08/29/20 17:43 Magnesium Hydrox/Alum Hydrox 30 Ml Oral.Susp PO 30 ml Q6H PRN Administration Heartburn/Nausea Albuterol Sulfate 2 puff 08/26/20 00:55 08/26/20 10:17 Albuterol Sulfate 90 Mcg 8 Gm Inhaler INHALE 2 puff RQ6H PRN Administration Shortness of Breath/Wheezing Albuterol Sulfate 2.5 mg 08/26/20 06:38 Albuterol Sulfate (0.083%) 2.5 Mg/3 Ml Vial.Neb INHALE Q4H PRN Wheezing Albuterol Sulfate 2 puff 08/26/20 06:38 08/31/20 09:02 Albuterol Sulfate 90 Mcg 8 Gm Inhaler INHALE 2 puff Q6H PRN Administration wheezing Atorvastatin Calcium 10 mg 08/26/20 21:00 08/30/20 20:13 Atorvastatin Calcium 10 Mg Tablet PO 10 mg BEDTIME ZHANNA Administration Fluticasone/Vilanterol 1 puff 08/26/20 08:00 08/31/20 09:02 Fluticasone/Vilanterol 200/25 Blst.W.Dev INHALE 1 puff RDAILY ZHANNA Administration Folic Acid 1 mg 08/26/20 12:25 08/31/20 08:48 Folic Acid 1 Mg Tablet PO 1 mg DAILY ZHANNA Administration Gabapentin 200 mg 08/27/20 15:00 08/31/20 08:48 Gabapentin 100 Mg Capsule PO 200 mg TID ZHANNA Administration Hydroxyzine HCl 25 mg 08/25/20 23:32 08/27/20 22:27 Hydroxyzine Hcl 25 Mg Tablet PO 25 mg BEDTIME PRN Administration Anxiety Ibuprofen 400 mg 08/29/20 11:00 08/30/20 19:32 Ibuprofen 400 Mg Tablet PO 400 mg TIDWM PRN Administration Pain, Moderate (Pain Scale 4-6 Levothyroxine Sodium 50 mcg 08/26/20 07:00 08/31/20 06:14 Levothyroxine Sodium 50 Mcg Tablet PO 50 mcg DAILY@0600 ZHANNA Administration Lisinopril 10 mg 08/29/20 09:00 08/31/20 08:48 Lisinopril 10 Mg Tablet PO 10 mg DAILY ZHANNA Administration Protocol Lorazepam 1 mg 08/27/20 11:27 Lorazepam 1 Mg Tablet PO Q4H PRN Alcohol Withdrawal Lorazepam 0.5 mg 08/30/20 21:00 08/31/20 08:48 Lorazepam 0.5 Mg Tablet PO 0.5 mg BID ZHANNA Administration Magnesium Hydroxide 30 ml 08/25/20 23:32 Milk Of Magnesia 30 Ml Oral.Susp PO DAILY PRN Constipation Multivitamins/Vitamin C 1 tab 08/26/20 12:25 08/31/20 08:48 Multivitamin Tablet PO 1 tab DAILY ZHANNA Administration Nicotine 21 mg 08/26/20 14:00 08/31/20 08:48 Nicotine 21 Mg Patch.Td24 TRANSDERMA 21 mg DAILY ZHANNA Administration Nicotine Polacrilex 2 mg 08/26/20 13:57 Nicotine Polacrilex 2 Mg Gum BUCCAL Q2H PRN Nicotine Cravings Omeprazole 20 mg 08/29/20 16:30 08/31/20 06:15 Omeprazole 20 Mg Capsule. PO 20 mg BID@6362,4196 ZHANNA Administration Sertraline HCl 200 mg 08/27/20 09:00 08/31/20 08:48 Sertraline Hcl 100 Mg Tablet PO 200 mg DAILY ZHANNA Administration Thiamine HCl 100 mg 08/27/20 09:00 08/31/20 08:48 Thiamine Hcl 100 Mg Tablet PO 100 mg DAILY ZHANNA Administration Trazodone HCl 200 mg 08/26/20 06:38 08/30/20 20:16 Trazodone Hcl 100 Mg Tablet PO 200 mg BEDTIME PRN Administration Insomnia Allergies Allergies Allergy/AdvReac Type Severity Reaction Status Date / Time No Known Allergies Allergy Unverified 07/03/20 19:45 [No Known Allergies*] Assessment & Plan Assessment & Plan (1) Alcohol use disorder, severe, dependence: Status: Acute Code(s): F10.20 - Alcohol dependence, uncomplicated (2) Major depress dis, severe: Status: Acute Code(s): F32.2 - Major depressive disorder, single episode, severe without psychotic f eatures Assessment and Plan: q15 checks q4 VS check orthos ETOH WD protocol: Vits x 3/Gabapentin/Lexapro/ reduce Lorazepam scheduled and continue PRN if needed for anxiety, BP elevation or WD symptoms encourage fluids Collateral info [facility] Groups Greater than 50% of the session was spent on counseling and/or coordination of care Patient educated on: diagnosis, medication risk/benefits and substance abuse Informed Consent: further education needed Reason for contiued inpatient stay Substantial Risk for: harm to self and med/psych decompensation
[2020-08-31 16:00] VITALS: BP 125/60; PULSE 76; TEMP 36.8
[2020-08-31 19:04] VITALS: BP 142/68; PULSE 68
[2020-08-31] MEDS: traZODone HCL 100 MG TABLET 200 MG PO (20:17)
[2020-08-31] MEDS: Ibuprofen 400 MG TABLET PO (20:17)
[2020-08-31] MEDS: Atorvastatin Calcium 10 MG TABLET PO (20:17)
[2020-09-01] VITALS (7 sets, daily range): BP systolic 100–137; BP diastolic 50–65; PULSE 67–100; RESP 18; TEMP 36.2–36.7; O2SAT 95
--- NOTE | 2020-09-01 06:31 | HO.PSYCHPN ---
Subjective Subjective Reason For Visit: Depression Interim History: Much improved mood. Remains orthostatic. Gait better. Sleep WD Sx better. Agrees to Naltrexone and Vivitrol DC Wed Review of Systems Reports dizziness (Denies today) Reports Neuro-related abnormal movements, Reports dizziness (Denies today) and Reports tremor(s) Mental Status Exam Mental Status Exam Patient Appearance: Disheveled and Unkempt Patient Orientation: Person, Place, Time and Situation Level of Consciousness: Restless Patient Behavior: Guarded, Passive, Anxious and Poor Eye Contact Mood Description: Apathetic, Depressed and Angry Affect Description: Depressed and Anxious Patient Cognition Impaired: No Ability to Follow Directions: Excellent Speech Pattern: Impoverished and Whisper Memory Description: Intact Diagnostics Vital Signs (24Hr): Vital Signs - 24 hr 08/31/20 16:00 08/31/20 19:04 Temperature 98.3 F Pulse Rate 76 68 Blood Pressure 125/60 142/68 H Body Mass Index 32.8 Labs Results: 08/25/20 16:09 08/25/20 16:09 Medications Medications Current Medications Generic Name Dose Route Start Last Admin Trade Name Freq PRN Reason Stop Dose Admin Al Hydroxide/Mg Hydroxide 30 ml 08/25/20 23:32 08/29/20 17:43 Magnesium Hydrox/Alum Hydrox 30 Ml Oral.Susp PO 30 ml Q6H PRN Administration Heartburn/Nausea Albuterol Sulfate 2 puff 08/26/20 00:55 08/26/20 10:17 Albuterol Sulfate 90 Mcg 8 Gm Inhaler INHALE 2 puff RQ6H PRN Administration Shortness of Breath/Wheezing Albuterol Sulfate 2.5 mg 08/26/20 06:38 Albuterol Sulfate (0.083%) 2.5 Mg/3 Ml Vial.Neb INHALE Q4H PRN Wheezing Albuterol Sulfate 2 puff 08/26/20 06:38 08/31/20 20:17 Albuterol Sulfate 90 Mcg 8 Gm Inhaler INHALE 2 puff Q6H PRN Administration wheezing Atorvastatin Calcium 10 mg 08/26/20 21:00 08/31/20 20:17 Atorvastatin Calcium 10 Mg Tablet PO 10 mg BEDTIME ZHANNA Administration Fluticasone/Vilanterol 1 puff 08/26/20 08:00 08/31/20 09:02 Fluticasone/Vilanterol 200/25 Blst.W.Dev INHALE 1 puff RDAILY ZHANNA Administration Folic Acid 1 mg 08/26/20 12:25 08/31/20 08:48 Folic Acid 1 Mg Tablet PO 1 mg DAILY ZHANNA Administration Gabapentin 200 mg 08/27/20 15:00 08/31/20 20:17 Gabapentin 100 Mg Capsule PO 200 mg TID ZHANNA Administration Hydroxyzine HCl 25 mg 08/25/20 23:32 08/27/20 22:27 Hydroxyzine Hcl 25 Mg Tablet PO 25 mg BEDTIME PRN Administration Anxiety Ibuprofen 400 mg 08/29/20 11:00 08/31/20 20:17 Ibuprofen 400 Mg Tablet PO 400 mg TIDWM PRN Administration Pain, Moderate (Pain Scale 4-6 Levothyroxine Sodium 50 mcg 08/26/20 07:00 08/31/20 06:14 Levothyroxine Sodium 50 Mcg Tablet PO 50 mcg DAILY@0600 [facility] Administration Lisinopril 10 mg 08/29/20 09:00 08/31/20 08:48 Lisinopril 10 Mg Tablet PO 10 mg DAILY ZHANNA Administration Protocol Lorazepam 1 mg 08/27/20 11:27 Lorazepam 1 Mg Tablet PO Q4H PRN Alcohol Withdrawal Lorazepam 0.5 mg 08/30/20 21:00 08/31/20 20:17 Lorazepam 0.5 Mg Tablet PO 0.5 mg BID ZHANNA Administration Magnesium Hydroxide 30 ml 08/25/20 23:32 Milk Of Magnesia 30 Ml Oral.Susp PO DAILY PRN Constipation Multivitamins/Vitamin C 1 tab 08/26/20 12:25 08/31/20 08:48 Multivitamin Tablet PO 1 tab DAILY ZHANNA Administration Nicotine 21 mg 08/26/20 14:00 08/31/20 08:48 Nicotine 21 Mg Patch.Td24 TRANSDERMA 21 mg DAILY ZHANNA Administration Nicotine Polacrilex 2 mg 08/26/20 13:57 Nicotine Polacrilex 2 Mg Gum BUCCAL Q2H PRN Nicotine Cravings Omeprazole 20 mg 08/29/20 16:30 08/31/20 17:26 Omeprazole 20 Mg Capsule.Dr PO 20 mg BID@0630,1630 ZHANNA Administration Sertraline HCl 200 mg 08/27/20 09:00 08/31/20 08:48 Sertraline Hcl 100 Mg Tablet PO 200 mg DAILY ZHANNA Administration Thiamine HCl 100 mg 08/27/20 09:00 08/31/20 08:48 Thiamine Hcl 100 Mg Tablet PO 100 mg DAILY ZHANNA Administration Trazodone HCl 200 mg 08/26/20 06:38 08/31/20 20:17 Trazodone Hcl 100 Mg Tablet PO 200 mg BEDTIME PRN Administration Insomnia Allergies Allergies Allergy/AdvReac Type Severity Reaction Status Date / Time No Known Allergies Allergy Unverified 07/03/20 19:45 [No Known Allergies*] Assessment & Plan Assessment & Plan (1) Alcohol use disorder, severe, dependence: Status: Acute Code(s): F10.20 - Alcohol dependence, uncomplicated (2) Major depress dis, severe: Status: Acute Code(s): F32.2 - Major depressive disorder, single episode, severe without psychotic features Assessment and Plan: q15 checks q4 VS check orthos ETOH WD protocol: Vits x 3/Gabapentin/Lexapro/ reduce Lorazepam scheduled and continue PRN if needed for anxiety, BP elevation or WD symptoms encourage fluids Collateral info [facility] Greater than 50% of the session was spent on counseling and/or coordination of care
[2020-09-01] MEDS: Omeprazole 20 MG CAPSULE.DR PO ×2 (06:48→17:20)
[2020-09-01] MEDS: Levothyroxine Sodium 50 MCG TABLET PO (06:48)
[2020-09-01] MEDS: LORazepam 0.5 MG TABLET PO ×2 (09:10→19:59)
[2020-09-01] MEDS: lisinopriL 10 MG TABLET PO (09:10)
[2020-09-01] MEDS: Gabapentin 100 MG CAPSULE 200 MG PO ×3 (09:10→19:59)
[2020-09-01] MEDS: Multivitamin TABLET 1 TAB PO (09:10)
[2020-09-01] MEDS: Nicotine 21 MG PATCH.TD24 TRANSDERMA (09:10)
[2020-09-01] MEDS: Thiamine HCL 100 MG TABLET PO (09:10)
[2020-09-01] MEDS: Folic Acid 1 MG TABLET PO (09:10)
[2020-09-01] MEDS: Sertraline HCL 100 MG TABLET 200 MG PO (09:10)
[2020-09-01] MEDS: Fluticasone/Vilanterol 200/25 BLST.W.DEV 1 PUFF INHALE (09:25)
[2020-09-01] MEDS: Ibuprofen 400 MG TABLET PO ×2 (09:26→19:58)
[2020-09-01] MEDS: Atorvastatin Calcium 10 MG TABLET PO (19:58)
[2020-09-01] MEDS: Albuterol Sulfate 90 MCG 8 GM INHALER 2 PUFF INHALE (19:58)
[2020-09-01] MEDS: traZODone HCL 100 MG TABLET 200 MG PO (19:59)
--- NOTE | 2020-09-02 05:58 | HO.PSYCHPN ---
Subjective Subjective Reason For Visit: Depression Interim History: Much improved mood. Remains orthostatic. Gait better. Sleep WD Sx better. Agrees to Naltrexone and Vivitrol DC Wed Review of Systems Reports dizziness (Denies today) Reports Neuro-related abnormal movements, Reports dizziness (Denies today) and Reports tremor(s) Mental Status Exam Mental Status Exam Patient Appearance: Disheveled and Unkempt Patient Orientation: Person, Place, Time and Situation Level of Consciousness: Restless Patient Behavior: Guarded, Passive, Anxious and Poor Eye Contact Mood Description: Apathetic, Depressed and Angry Affect Description: Depressed and Anxious Patient Cognition Impaired: No Ability to Follow Directions: Excellent Speech Pattern: Impoverished and Whisper Memory Description: Intact Diagnostics Vital Signs (24Hr): Vital Signs - 24 hr 09/01/20 06:00 09/01/20 06:20 09/01/20 09:10 Temperature 97.9 F Pulse Rate 100 97 97 Respiratory Rate 18 Blood Pressure 100/50 L 127/61 127/61 Pulse Oximetry 09/01/20 12:00 09/01/20 14:00 09/01/20 16:00 Temperature 98.0 F 97.1 F Pulse Rate 100 78 76 Respiratory Rate 18 Blood Pressure 137/65 118/58 L 124/60 Pulse Oximetry 95 09/01/20 21:19 Temperature Pulse Rate 67 Respiratory Rate Blood Pressure 137/62 Pulse Oximetry Body Mass Index 32.8 Labs Results: 08/25/20 16:09 08/25/20 16:09 Medications Medications Current Medications Generic Name Dose Route Start Last Admin Trade Name Freq PRN Reason Stop Dose Admin Al Hydroxide/Mg Hydroxide 30 ml 08/25/20 23:32 08/29/20 17:43 Magnesium Hydrox/Alum Hydrox 30 Ml Oral.Susp PO 30 ml Q6H PRN Administration Heartburn/Nausea Albuterol Sulfate 2 puff 08/26/20 00:55 08/26/20 10:17 Albuterol Sulfate 90 Mcg 8 Gm Inhaler INHALE 2 puff RQ6H PRN Administration Shortness of Breath/Wheezing Albuterol Sulfate 2.5 mg 08/26/20 06:38 Albuterol Sulfate (0.083%) 2.5 Mg/3 Ml Vial.Neb INHALE Q4H PRN Wheezing Albuterol Sulfate 2 puff 08/26/20 06:38 09/01/20 19:58 Albuterol Sulfate 90 Mcg 8 Gm Inhaler INHALE 2 puff Q6H PRN Administration wheezing Atorvastatin Calcium 10 mg 08/26/20 21:00 09/01/20 19:58 Atorvastatin Calcium 10 Mg Tablet PO 10 mg BEDTIME ZHANNA Administration Fluticasone/Vilanterol 1 puff 08/26/20 08:00 09/01/20 09:25 Fluticasone/Vilanterol 200/25 Blst.W.Dev INHALE 1 puff RDAILY ZHANNA Administration Folic Acid 1 mg 08/26/20 12:25 09/01/20 09:10 Folic Acid 1 Mg Tablet PO 1 mg DAILY ZHANNA Administration Gabapentin 200 mg 08/27/20 15:00 09/01/20 19:59 Gabapentin 100 Mg Capsule PO 200 mg TID ZHANNA Administration Hydroxyzine HCl 25 mg 08/25/20 23:32 08/27/20 22:27 Hydroxyzine Hcl 25 Mg Tablet PO 25 mg BEDTIME PRN Administration Anxiety Ibuprofen 400 mg 08/29/20 11:00 09/01/20 19:58 Ibuprofen 400 Mg Tablet PO 400 mg TIDWM PRN Administration Pain, Moderate (Pain Scale 4-6 Levothyroxine Sodium 50 mcg 08/26/20 07:00 09/01/20 06:48 Levothyroxine Sodium 50 Mcg Tablet PO 50 mcg DAILY@0600 ZHANNA Administration Lisinopril 10 mg 08/29/20 09:00 09/01/20 09:10 Lisinopril 10 Mg Tablet PO 10 mg DAILY ZHANNA Administration Protocol Lorazepam 0.5 mg 09/02/20 21:00 Lorazepam 0.5 Mg Tablet PO BEDTIME ZHANNA Magnesium Hydroxide 30 ml 08/25/20 23:32 Milk Of Magnesia 30 Ml Oral.Susp PO DAILY PRN Constipation Multivitamins/Vitamin C 1 tab 08/26/20 12:25 09/01/20 09:10 Multivitamin Tablet PO 1 tab DAILY ZHANNA Administration Naltrexone HCl 50 mg 09/02/20 09:00 Naltrexone Hcl 50 Mg Tablet PO DAILY ZHANNA Nicotine 21 mg 08/26/20 14:00 09/01/20 09:10 Nicotine 21 Mg Patch.Td24 TRANSDERMA 21 mg DAILY ZHANNA Administration Nicotine Polacrilex 2 mg 08/26/20 13:57 Nicotine Polacrilex 2 Mg Gum BUCCAL Q2H PRN Nicotine Cravings Omeprazole 20 mg 08/29/20 16:30 09/01/20 17:20 Omeprazole 20 Mg Capsule. PO 20 mg BID@0606,2580 ZHANNA Administration Sertraline HCl 200 mg 08/27/20 09:00 09/01/20 09:10 Sertraline Hcl 100 Mg Tablet PO 200 mg DAILY ZHANNA Administration Thiamine HCl 100 mg 08/27/20 09:00 09/01/20 09:10 Thiamine Hcl 100 Mg Tablet PO 100 mg DAILY ZHANNA Administration Trazodone HCl 200 mg 08/26/20 06:38 09/01/20 19:59 Trazodone Hcl 100 Mg Tablet PO 200 mg BEDTIME PRN Administration Insomnia Allergies Allergies Allergy/AdvReac Type Severity Reaction Status Date / Time No Known Allergies Allergy Unverified 07/03/20 19:45 [No Known Allergies*] Assessment & Plan Assessment & Plan (1) Alcohol use disorder, severe, dependence: Status: Acute Code(s): F10.20 - Alcohol dependence, uncomplicated (2) Major depress dis, severe: Status: Acute Code(s): F32.2 - Major depressive disorder, single episode, severe without psychotic features Assessment and Plan: q15 checks q4 VS check orthos ETOH WD protocol: Vits x 3/Gabapentin/Lexapro/ reduce Lorazepam scheduled and continue PRN if needed for anxiety, BP elevation or WD symptoms encourage fluids Collateral info [facility] Greater than 50% of the session was spent on counseling and/or coordination of care
[2020-09-02 06:34] VITALS: BP 117/62; PULSE 69; TEMP 36.6
[2020-09-02] MEDS: Omeprazole 20 MG CAPSULE.DR PO ×2 (06:37→19:08)
[2020-09-02] MEDS: Levothyroxine Sodium 50 MCG TABLET PO (06:37)
[2020-09-02] MEDS: Nicotine 21 MG PATCH.TD24 TRANSDERMA (08:30)
[2020-09-02] MEDS: Fluticasone/Vilanterol 200/25 BLST.W.DEV 1 PUFF INHALE (08:31)
[2020-09-02] MEDS: Multivitamin TABLET 1 TAB PO (08:31)
[2020-09-02] MEDS: Thiamine HCL 100 MG TABLET PO (08:31)
[2020-09-02] MEDS: Sertraline HCL 100 MG TABLET 200 MG PO (08:31)
[2020-09-02 08:32] VITALS: BP 117/62; PULSE 69
[2020-09-02] MEDS: lisinopriL 10 MG TABLET PO (08:32)
[2020-09-02] MEDS: Gabapentin 100 MG CAPSULE 200 MG PO ×3 (08:32→20:19)
[2020-09-02] MEDS: Folic Acid 1 MG TABLET PO (08:33)
[2020-09-02] MEDS: Naltrexone HCl 50 MG TABLET PO (08:33)
[2020-09-02 10:33] VITALS: PULSE 73
[2020-09-02] MEDS: Ibuprofen 400 MG TABLET PO ×2 (10:36→20:20)
[2020-09-02 14:00] VITALS: BP 138/64; PULSE 69
[2020-09-02 14:03] VITALS: BP 125/54; PULSE 86
[2020-09-02 16:50] VITALS: BP 86/54; PULSE 72; TEMP 35.8
[2020-09-02] MEDS: Atorvastatin Calcium 10 MG TABLET PO (20:19)
[2020-09-02] MEDS: traZODone HCL 100 MG TABLET 200 MG PO (20:19)
[2020-09-02] MEDS: LORazepam 0.5 MG TABLET PO (20:20)
[2020-09-02] MEDS: Albuterol Sulfate 90 MCG 8 GM INHALER 2 PUFF INHALE (20:27)
[2020-09-03 06:20] VITALS: BP 126/58; PULSE 71; RESP 16; TEMP 37.1
[2020-09-03] MEDS: Omeprazole 20 MG CAPSULE.DR PO (06:29)
[2020-09-03] MEDS: Levothyroxine Sodium 50 MCG TABLET PO (06:29)
[2020-09-03] MEDS: Fluticasone/Vilanterol 200/25 BLST.W.DEV 1 PUFF INHALE (08:16)
[2020-09-03] MEDS: Gabapentin 100 MG CAPSULE 200 MG PO ×2 (08:17→13:26)
[2020-09-03] MEDS: Nicotine 21 MG PATCH.TD24 TRANSDERMA (08:19)
[2020-09-03] MEDS: Sertraline HCL 100 MG TABLET 200 MG PO (08:22)
[2020-09-03 08:24] VITALS: BP 126/58; PULSE 71
[2020-09-03] MEDS: lisinopriL 10 MG TABLET PO (08:24)
[2020-09-03] MEDS: Multivitamin TABLET 1 TAB PO (08:25)
[2020-09-03] MEDS: Naltrexone HCl 50 MG TABLET PO (08:25)
[2020-09-03] MEDS: Thiamine HCL 100 MG TABLET PO (08:25)
[2020-09-03] MEDS: Folic Acid 1 MG TABLET PO (08:25)
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
== END 2020-09-03 14:02 | disposition home or self-care (01) | DRG 885 ==
LOC: HO.ED 21:49 → HO.PM5 23:41
PROVIDERS: Nurse Practitioner Primary Care; Admitting Provider Psychiatry & Neurology Psychiatry; Emergency Provider Emergency Medicine; PCP Family Medicine; Visit Provider Psychiatry & Neurology Psychiatry
DX: F32.2 Major depressive disorder, single episode, severe without psychotic features (principal); R45.851 Suicidal ideations; F43.10 Post-traumatic stress disorder, unspecified; F10.20 Alcohol dependence, uncomplicated; Z23 Encounter for immunization; Z20.828 Contact with and (suspected) exposure to other viral communicable diseases; Y90.6 Blood alcohol level of 120-199 mg/100 ml; Z79.890 Hormone replacement therapy; Z79.899 Other long term (current) drug therapy
CPT/HCPCS: 36415; 80053; 80307; 80320; 81001; 85025; 87635; 90686; 99223; 99232; 99239; 99285; U0003

== ENCOUNTER → 2020-09-03 13:55 | Outpatient (BNVA) | payer MEDICARE, SELFPAY | PROVIDERS: Visit Provider Internal Medicine | DX: Z72.89 Other problems related to lifestyle (principal); F32.2 Major depressive disorder, single episode, severe without psychotic features | CPT/HCPCS: Q3014 ==

== ENCOUNTER → 2020-09-16 13:19 | Outpatient (BNVA) | payer MEDICARE, SELFPAY | PROVIDERS: Visit Provider Internal Medicine | DX: F10.11 Alcohol abuse, in remission (principal); F17.210 Nicotine dependence, cigarettes, uncomplicated | CPT/HCPCS: 80305; 99212 ==

== ENCOUNTER → 2025-10-02 17:28 | Outpatient (BNV) | payer MEDICARE, SELFPAY | PROVIDERS: Emergency Provider Student in an Organized Health Care Education/Training Program; Visit Provider Student in an Organized Health Care Education/Training Program | DX: N20.0 Calculus of kidney (principal) | CPT/HCPCS: 74176 ==

== ENCOUNTER → 2025-10-03 07:28 | Outpatient (BNV) | payer MEDICARE, SELFPAY | PROVIDERS: Emergency Provider Student in an Organized Health Care Education/Training Program; Visit Provider Internal Medicine Cardiovascular Disease | DX: R00.1 Bradycardia, unspecified (principal) | CPT/HCPCS: 93010 ==

== ENCOUNTER 2025-10-04 11:21 | Outpatient (BNV) | payer MEDICARE, SELFPAY | END 2025-10-12 11:15 | PROVIDERS: Admitting Provider Social Worker; Emergency Provider Student in an Organized Health Care Education/Training Program; Visit Provider Specialist | DX: R19.7 Diarrhea, unspecified (principal); R25.2 Cramp and spasm | CPT/HCPCS: 74018 ==

== ENCOUNTER 2025-10-04 11:21 | Outpatient (BNV) | payer MEDICARE, SELFPAY | END 2025-10-08 09:03 | PROVIDERS: Admitting Provider Social Worker; Emergency Provider Student in an Organized Health Care Education/Training Program; Visit Provider Radiology Diagnostic Radiology | DX: D72.829 Elevated white blood cell count, unspecified (principal) | CPT/HCPCS: 71046 ==

== ENCOUNTER 2025-10-04 11:21 | Outpatient (BNV) | payer MEDICARE, SELFPAY | END 2025-10-07 16:59 | PROVIDERS: Admitting Provider Social Worker; Emergency Provider Student in an Organized Health Care Education/Training Program; Visit Provider Internal Medicine Cardiovascular Disease | DX: R00.1 Bradycardia, unspecified (principal) | CPT/HCPCS: 93010 ==

== ENCOUNTER → 2025-10-04 11:21 | Outpatient (BNV) | payer MEDICARE, SELFPAY | PROVIDERS: Admitting Provider Social Worker; Emergency Provider Student in an Organized Health Care Education/Training Program; Visit Provider Nurse Practitioner Family | DX: G89.29 Other chronic pain (principal) | CPT/HCPCS: 99232; 99499 ==

== ENCOUNTER → 2025-10-04 11:21 | Outpatient (BNV) | payer MEDICARE, SELFPAY | PROVIDERS: Admitting Provider Social Worker; Emergency Provider Student in an Organized Health Care Education/Training Program; Visit Provider Psychiatry & Neurology Psychiatry | DX: G89.29 Other chronic pain (principal) | CPT/HCPCS: 90792; 99232 ==